=== PATIENT | female | born 1945 | race Caucasian/White ===

== ENCOUNTER 2018-08-20 18:14 | Emergency (ER) | payer MEDICARE, OTHER ==
--- NOTE | 2018-08-20 18:36 | ED Physician Documentation ---
PD HPI OPHTHO - Stated complaint Stated Complaint: RT EYE SWELLING - Chief complaint Chief Complaint: Heent - History obtained from History obtained from: Patient - History of Present Illness Timing - onset: Yesterday (She is having a lot of right eye drainage and blurry vision since yesterday with some mild URI symptoms) Review of Systems Constitutional: denies: Fever, Chills Eyes: reports: Discharge, Irritation. denies: Loss of vision, Decreased vision, Photophobia Ears: denies: Loss of hearing, Ear pain PD PAST MEDICAL HISTORY - Present Medications Home Medications: Ambulatory Orders Medication Instructions Recorded Confirmed Aspirin Chewable [[facility] [place] 81 08/20/18 Aspirin] Fexofenadine HCl [Chastity Allergy] 60 08/20/18 Omeprazole 20 08/20/18 Valacyclovir HCl [Valacyclovir] 08/20/18 levoFLOXacin 0.5% OPHTH DROPS 1 drops RIGHTEYE 5XD 7 Days #1 08/20/18 [Quixin Ophth Drops] bottle - Allergies Allergies/Adverse Reactions: Allergies Allergy/AdvReac Type Severity Reaction Status Date / Time aspirin [From Percodan] AdvReac Emesis Verified 08/20/18 18:22 codeine AdvReac Emesis Verified 08/20/18 18:22 erythromycin base AdvReac Emesis Verified 08/20/18 18:22 oxycodone [From Percodan] AdvReac Emesis Verified 08/20/18 18:22 Sulfa (Sulfonamide AdvReac Emesis Verified 08/20/18 18:22 Antibiotics) sulfamethoxazole AdvReac Emesis Verified 08/20/18 18:22 [From Septra] trimethoprim [From Septra] AdvReac Emesis Verified 08/20/18 18:22 PD ED PE NORMAL - Vitals Vital signs reviewed: Yes - General General: Alert and oriented X 3, No acute distress - HEENT HEENT: PERRL, EOMI, Other (She has significant mucopurulent conjunctivitis on the right, culture was obtained during examination. There is no fluorescein uptake.) - Neck Neck: Supple, no meningeal sign, No bony TTP - Neuro Neuro: Alert and oriented X 3, Normal speech - Psych Psych: Normal mood, Normal affect Results - Vitals Vitals: Vital Signs - 24 hr 08/20/18 18:17 Temperature 36.4 C L Heart Rate 72 Respiratory 18 Rate Blood Pressure 170/72 H O2 Saturation 97 Oxygen O2 Source Room air Departure - Departure Disposition: 01 Home, Self Care Clinical Impression: Acute conjunctivitis of right eye Qualifiers: Acute conjunctivitis type: bacterial Qualified Code(s): H10.31 - Unspecified acute conjunctivitis, right eye Condition: Good Record reviewed to determine appropriate education?: Yes Instructions: ED Conjunctivitis Bacterial Prescriptions: levoFLOXacin 0.5% OPHTH DROPS [Quixin Ophth Drops] 1 drops RIGHTEYE 5XD 7 Days #1 bottle Comments: We are performing an eye culture, the results should be done in 48-72 hours. If antibiotic change is necessary we will call you. Return if worse in the meantime. Otherwise follow-up with your physician in approximately 2-3 days. Your blood pressure was elevated today on check into the emergency department. This does not mean that you have hypertension, it is a common phenomenon to come to the emergency department and have elevated blood pressure. I recommend that you see your primary care physician within the week to have it rechecked when you are feeling better.
[2018-08-20] MEDS ORDERED: levoFLOXacin 0.5% OPHTH DROPS 5 ML RIGHTEYE SCH (19:00)
[2018-08-20] MEDS ORDERED: levoFLOXacin 0.5% OPHTH DROPS 5 ML ONE (19:07)
[2018-08-20 19:14] VITALS: BP 160/72
== END 2018-08-20 19:13 | disposition home or self-care (01) ==
LOC: ED 18:14
DX: H10.31 Unspecified acute conjunctivitis, right eye (principal); Z79.82 Long term (current) use of aspirin; R03.0 Elevated blood-pressure reading, without diagnosis of hypertension
CPT/HCPCS: 87070; 87077; 99282; 99283; A9270